=== PATIENT | female | born 1955 | race Caucasian/White ===

== ENCOUNTER 2020-01-24 14:58 | Inpatient (IN) | payer OTHER ==
[~2020-01-24] VITALS: Ht 165.1 cm; Wt 91.2 kg
[2020-01-24 14:59] VITALS: BP 148/89
[2020-01-24] MEDS ORDERED: CBD OIL (15:03)
[2020-01-24 15:26] LABS: ABSOLUTE EOSINOPHILS 0.1 thou/uL (0.0-0.7); ABSOLUTE LYMPHOCYTES 1.6 thou/uL (0.8-5.3); ABSOLUTE MONOCYTES 0.7 thou/uL (0.0-1.2); ABSOLUTE NEUTROPHILS 6.2 thou/uL (1.6-8.1); BASOPHILS 0.5 %; EOSINOPHILS 1.6 %; HEMATOCRIT 39.2 % (37.0-47.0); HEMOGLOBIN 12.7 gm/dL (12.0-15.0); LYMPHOCYTES 18.3 %; MCH 30.1 pg (26.0-34.0); MCHC 32.5 g/dL (28.0-37.0); MCV 92.8 fL (80.0-100.0); MONOCYTES 8.2 %; MPV 8.7 fl. (7.2-11.1); NUCLEATED RBCS 0 /100WBC; PLATELET COUNT* 435 thou/uL (150-400); POLYS 71.4 %; RBC 4.22 mil/uL (4.20-5.00); RDW-CV 15.5 % (10.5-14.5); WBC 8.8 thou/uL (4.0-11.0)
[2020-01-24 15:36] LABS: CALCIUM 9.2 mg/dL (8.5-10.1); CREATININE 1.4 mg/dL (0.6-1.3); POTASSIUM 3.7 mmol/L (3.5-5.1)
[2020-01-24 15:52] LABS: ALBUMIN 3.4 g/dL (3.4-5.0); MAGNESIUM 1.7 mg/dL (1.8-2.4); TOTAL BILIRUBIN 0.9 mg/dL (<0.1-1.0); TOTAL PROTEIN 7.1 g/dL (6.4-8.2)
[2020-01-24 16:13] LABS: APTT 24.5 Seconds (25.0-31.3); INR 1.1; PROTIME 11.8 Seconds (9.20-11.50)
--- NOTE | 2020-01-24 17:17 | EKG ---
[place] [address] ELECTROCARDIOGRAM REPORT Name: QUINN MEEHAN Room: [address] [address] ADM IN ..#: [id number] Admission: 01/24/20 Attend Phys: Beverly Betts, Discharge: Date of : 57 Date of Service: 01/24/20 1504 Report #: [id number] THIS REPORT FOR: //name// [facility] ED Test Date: 2020-01-24 Test Time: 15:04:05 Pat Name: QUINN MEEHAN Department: Room: [facility] Gender: F Cardiac Sonographer: HERLINDA : 1955 Requested By: Kaleb Best Order Number: [id number] MD: Pardeep Chance Measurements Intervals [place] Rate: 152 P: SD: QRS: 98 QRSD: 131 T: -30 QT: 319 QTc: 508 Interpretive Statements Right and left arm electrode reversal, interpretation assumes no reversal Atrial fibrillation Ventricular premature complex Nonspecific intraventricular conduction delay Borderline repol abnormality, diffuse leads No previous ECG available for comparison Electronically Signed On 01-24-2020 17:17:20 FILTER PULP WASHER by Pardeep Chance [email or web address] <ELECTRONICALLY SIGNED> By: Pardeep Chance MD, FACC 01/24/20 1717 1504 1504 Pardeep Chance MD, FACC /EPI
[2020-01-24 18:29] VITALS: BP 106/71
[2020-01-24 20:00] VITALS: BP 126/74
[2020-01-24 23:00] VITALS: BP 98/62
[2020-01-25 04:00] VITALS: BP 94/58
[2020-01-25 04:28] LABS: HEMATOCRIT 35.7 % (37.0-47.0); HEMOGLOBIN 11.6 gm/dL (12.0-15.0); MCH 30.5 pg (26.0-34.0); MCHC 32.5 g/dL (28.0-37.0); MCV 93.9 fL (80.0-100.0); MPV 9.1 fl. (7.2-11.1); RBC 3.8 mil/uL (4.20-5.00); RDW-CV 15.7 % (10.5-14.5); WBC 8.7 thou/uL (4.0-11.0)
--- NOTE | 2020-01-25 04:44 | NUR ---
PT ARRIVED TO [facility] ROOM 205 AT 1845. ASSUMED CARE OF PT AT 1920. PT ALERT ORIENTED. KAROL PAIN. AFIB RATE LESS THAN 100 BPM. CARDIZEM QTT INITALLY AT 10MG/HR. TITRATED DOWN TO 5 MG/HR AT 2300 WHERE IT REMAINS. UP TO BR WITH STAND BY ASSIST. NPO SINCE AR FOR POSSIBLE CARDIOVERSION. WCTM
[2020-01-25 05:01] LABS: ANION GAP 12 mmol/L (7-16); BUN 30 mg/dL (7-18); CALCIUM 8.5 mg/dL (8.5-10.1); CHLORIDE 106 mmol/L (98-107); CO2 25 mmol/L (21-32); CREATININE 1.4 mg/dL (0.6-1.3); GLUCOSE 128 mg/dL (70-99); MAGNESIUM 1.7 mg/dL (1.8-2.4); POTASSIUM 3.5 mmol/L (3.5-5.1); SODIUM 143 mmol/L (136-145); TROPONIN-I LEVEL <0.06 ng/mL (<0.06)
--- NOTE | 2020-01-25 07:26 | NUR ---
CARDIZEM GTT STOPPED SB HR 40. PT ASYMPTOMATIC.
[2020-01-25 08:54] VITALS: BP 98/47
--- NOTE | 2020-01-25 09:23 | CON ---
[address] [address] CONSULTATION Name: QUINN MEEHAN Room: [address] ADM IN M.R.#: [id number] Admission: 01/24/20 Attend Phys: Beverly Betts MD Discharge: Date of : 57 Report #: [id number] THIS REPORT FOR: //name// cc: Beatriz Aguilar Anna S. DO ~ DATE OF SERVICE: 01/24/2020 CARDIOLOGY CONSULTATION HISTORY OF PRESENT ILLNESS: The patient is a 64-year-old single white female who I was asked to see in the Emergency Room today after she is noted to be in atrial fibrillation. The patient has no history of heart disease. She does state she had a treadmill test years ago that showed no significant heart disease. She stays very active and denies any recurrent episodes of chest discomfort, shortness of breath, palpitations, syncope or heart murmur. She notes that a few weeks ago she drove to [place], was there for a while and then drove back. While she was there, she developed some epigastric discomfort. It is not related to food or exertion. She took some antacids. She has had no bleeding. Recently, she continued to complain of epigastric discomfort. She felt somewhat lightheaded. She did feel her heart fluttering. She went to urgent care today and was found to be in atrial fibrillation. She sent by ambulance to the Emergency Room and started on intravenous diltiazem. PAST MEDICAL HISTORY: She has had partial colectomy for diverticular disease and tonsillectomy. No history of hypertension, diabetes or hyperlipidemia. She has been told she has glucose intolerance in the past. MEDICATIONS: The only medication she takes is CBD oil for pain. ALLERGIES: SHE HAS AN ALLERGY TO SULFA DRUGS. FAMILY HISTORY: Father had bypass surgery in his 60s. SOCIAL HISTORY: She is single, lives here in [place]. 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 No smoking. Rarely drinks alcohol. No caffeine. She quit tobacco when she was 50. REVIEW OF SYSTEMS: She has had no history of stroke, asthma, liver disease, kidney disease, cancer, chronic skin condition or psychiatric illness. PHYSICAL EXAMINATION: GENERAL: Revealed a middle-aged female, appeared in no distress. VITAL SIGNS: She had a blood pressure of 140/80, pulse is 140, [place] [address] CONSULTATION Name: QUINN MEEHAN Room: [address]#: [id number] Admission: 01/24/20 Attend Phys: Beverly Betts MD Discharge: Date of : 57 Report #: [id number] HEENT: She was anicteric. Conjunctivae pink. Mucous membranes moist. NECK: Veins nondistended. No carotid bruits. CHEST: Clear to auscultation. CARDIOVASCULAR: Irregular, tachycardia. No significant murmurs. ABDOMEN: Soft. EXTREMITIES: Had no edema, no Homans sign. Dorsalis pedis pulse cannot be palpated. SKIN: Cool and dry. NEUROLOGIC: Nonfocal. DIAGNOSTIC DATA: ECG shows atrial fibrillation with increased ventricular response rate, nonspecific intraventricular conduction defect. LABORATORY WORK: In the Emergency Room today is pending, although the CBC shows a white blood cell count 8.8 and hemoglobin 12.7. COVID stat test was negative. Chest x-ray is pending. IMPRESSION AND RECOMMENDATIONS: 1. Atrial fibrillation. Onset unclear. Recommend anticoagulation with Eliquis. If she fails to convert, I would consider cardioversion and ROSANNE. I discussed indications, alternatives, and risks of the procedure with the patient agrees to proceed. 2. Epigastric discomfort. Suspect gastrointestinal. <ELECTRONICALLY SIGNED> By: Isai Chávez MD, FACC 01/25/20 0923 1540 1930Isai Chávez MD, FACC /nt
--- NOTE | 2020-01-25 09:43 | EKG ---
[place] [address] ELECTROCARDIOGRAM REPORT Name: QUINN MEEHAN Room: [address] ADM IN .R.#: [id number] Admission: 01/24/20 Attend Phys: Beverly Betts, Discharge: Date of : 57 Date of Service: 01/25/20 0854 Report #: [id number] THIS REPORT FOR: //name// [facility] Test Date: 2020-01-25 Test Time: 08:54:27 Pat Name: QUINN MEEHAN Department: Room: [facility] Gender: F Tuna Purse Seiner: SONJA : 1955 Requested By: Isai Chávez Order Number: [id number] Reading MD: Isai Chávez Measurements Intervals [place] Rate: 48 P: 45 TN: 168 QRS: 105 QRSD: 149 T: 116 QT: 598 QTc: 535 Interpretive Statements Sinus bradycardia Atrial premature complex poor r wave progression Nonspecific intraventricular conduction delay Inferior infarct, old Compared to ECG 01/24/2020 15:04:05 Atrial fibrillation no longer present Ventricular premature complex(es) no longer present Electronically Signed On 01-25-2020 9:42:48 TOLL SERVICE OBSERVER by Isai Chávez [email or web address] <ELECTRONICALLY SIGNED> By: Isai Chávez MD, FACC 01/25/20 0942 Isai Chávez MD, FACC /EPI
--- NOTE | 2020-01-25 11:09 | NUR ---
ECHO AT BEDSIDE
[2020-01-25 12:00] VITALS: BP 95/55
--- NOTE | 2020-01-25 13:00 | 2DMMODE ---
[address] [address] 2 D/M-MODE ECHOCARDIOGRAM Name: QUINN MEEHAN Room: [address] IN [facility]#: [id number] Admission: 01/24/20 Attend Phys: Beverly Betts, Discharge: Date of : 57 Date of Service: 01/25/20 1300 Report #: [id number] THIS REPORT FOR: cc: Beatriz Aguilar,Pardeep Singh MD [facility] ~ APPROVED REPORT Study performed: 01/25/2020 10:56:33 EXAM: Comprehensive 2D, Doppler, and color-flow Echocardiogram Patient Location: In-Patient Room #: [facility] Status: routine BSA: 1.98 HR: 50 bpm BP: 98/47 mmHg Rhythm: NSR Other Information Study Quality: Good Indications Atrial Fibrillation 2D Dimensions IVSd: 10.91 (7-11mm) LVOT Diam: 18.50 (18-24mm) LVDd: 58.35 mm PWd: 9.35 (7-11mm) Ascending Ao: 28.54 (22-36mm) LVDs: 47.02 (25-40mm) Aortic Root: 25.94 mm Volumes Left Atrial Volume (Systole) LA ESV Index: 52.20 mL/m2 Aortic Valve AoV Peak Wang.: 1.39 m/s AO Peak Gr.: 7.77 mmHg LVOT Max P.14 mmHg AO Mean Gr.: 3.83 mmHg LVOT Mean P.20 mmHg LVOT Max V: 0.89 m/s AO V2 VTI: 23.50 cm LVOT Mean V: 0.49 m/s SOL (VTI): 1.72 cm2 LVOT V1 VTI: 15.06 [place] [address] 2 D/M-MODE ECHOCARDIOGRAM Name: QUINN MEEHAN Room: [address] IN ..#: [id number] Admission: 01/24/20 Attend Phys: Beverly Betts, Discharge: Date of : 57 Date of Service: 01/25/20 1300 Report #: [id number] TDI Medial E' Wang.: 0.05 m/s Lateral E' Wang.: 0.09 m/s Pulmonary Valve PV Peak Wang.: 0.65 m/s PV Peak Gr.: 1.68 mmHg Tricuspid Valve RAP Estimate: 5.00 mmHg TR Peak Gr.: 31.00 mmHg RVSP: 36.00 mmHg PA Pressure: 36.00 mmHg Left Ventricle Left ventricle is mildly dilated. There is severe left ventricular systolic dysfunction with severely hypokinetic anterior anteroseptal and inferior torres. There is normal left ventricular wall thickness. Left ventricular systolic function is severely decreased. LVEF is 30-35%. Grade IV - fixed restrictive diastolic dysfunction. Right Ventricle The right ventricle is normal size. The right ventricular systolic function is normal. Atria Left atrium is moderately dilated. Right atrium is moderately dilated. Aortic Valve Mild aortic valve sclerosis. Trace aortic regurgitation. Mild aortic stenosis. Mitral Valve The mitral valve is normal in structure. Moderate to severe mitral regurgitation No evidence of mitral valve stenosis. Tricuspid Valve The tricuspid valve is normal in structure. Mild tricuspid regurgitation. Mild pulmonary hypertension. Pulmonic Valve The pulmonary valve is normal in structure. Mild pulmonic regurgitation. Great Vessels The aortic root is normal in size. IVC is dilated and collapses <50% [place] [address] 2 D/M-MODE ECHOCARDIOGRAM Name: QUINN MEEHAN Room: [address] IN ..#: [id number] Admission: 01/24/20 Attend Phys: Beverly Betts, Discharge: Date of : 57 Date of Service: 01/25/20 [facility] Report #: [id number] Pericardium A small pericardial effusion is noted mostly posteriorly. Left pleural effusion. <Conclusion> Left ventricle is mildly dilated. There is normal left ventricular wall thickness. Left ventricular systolic function is severely decreased. LVEF is 30-35%. Grade IV - fixed restrictive diastolic dysfunction. Left atrium is moderately dilated. Right atrium is moderately dilated. Mild aortic valve sclerosis. Trace aortic regurgitation. Mild aortic stenosis. Moderate to severe mitral regurgitation Mild tricuspid regurgitation. Mild pulmonary hypertension. IVC is dilated and collapses <50% with inspiration. A small pericardial effusion is noted mostly posteriorly. Left pleural effusion. <ELECTRONICALLY SIGNED> By: Pardeep Chance MD, FACC 01/25/20 1300 1300 1300 Pardeep Chance MD, FACC /INF
--- NOTE | 2020-01-25 13:23 | NUR ---
Pt is A&O.Resides at home alone. Independent. No DME. No hx of HH or SNF. Cardiology following, plan dc home tomorrow. CM was notified that Pt is out of network and needs to transfer to either a [facility] hospital or [facility], Pt's preference is [facility]. CM faxed referral to [facility] transfer team, [facility] is able to accept Pt clinically, but will not likely have a available bed until tomorrow, all other [facility] hospitals are at capacity. [facility] hospital is at capacity to transfers. CM updated Dr and Pt. No needs anticipated at dc. Following.
[2020-01-25 16:42] VITALS: BP 101/68
[2020-01-25 20:13] VITALS: BP 113/67
[2020-01-26] VITALS: BP 111/71
[2020-01-26 04:00] VITALS: BP 121/74
[2020-01-26 04:10] LABS: HEMATOCRIT 35.6 % (37.0-47.0); HEMOGLOBIN 11.5 gm/dL (12.0-15.0); MCH 30.1 pg (26.0-34.0); MCHC 32.2 g/dL (28.0-37.0); MCV 93.5 fL (80.0-100.0); MPV 9.1 fl. (7.2-11.1); RBC 3.81 mil/uL (4.20-5.00); RDW-CV 15.7 % (10.5-14.5); WBC 9.3 thou/uL (4.0-11.0)
[2020-01-26 04:44] LABS: ALKALINE PHOSPHATASE 58 U/L (46-116); ANION GAP 10 mmol/L (7-16); BUN 41 mg/dL (7-18); CALCIUM 8.4 mg/dL (8.5-10.1); CHLORIDE 105 mmol/L (98-107); CHOLESTEROL 141 mg/dL (<200); CO2 26 mmol/L (21-32); CREATININE 2.1 mg/dL (0.6-1.3); GLUCOSE 112 mg/dL (70-99); HDL CHOLESTEROL 23 mg/dL (>40); LDL CHOLESTEROL 99 mg/dL (<100); POTASSIUM 4.1 mmol/L (3.5-5.1); SGOT 16 U/L (15-37); SGPT 39 U/L (30-65); SODIUM 141 mmol/L (136-145); TC:HDL 6.1 Ratio (Not establshd); TOTAL BILIRUBIN 0.6 mg/dL (<0.1-1.0); TOTAL PROTEIN 6.2 g/dL (6.4-8.2); TRIGLYCERIDE 99 mg/dL (<150); VLDL 20 mg/dL (<40)
[2020-01-26 04:47] LABS: SERUM ASSESSMENT CLEAR
--- NOTE | 2020-01-26 05:21 | NUR ---
PT ALERT ORIENTED. UP AD ANNETTE IN ROOM. TELEMETRY SHOWS SR. TYLENOL GIVEN HS FOR BACK PAIN. WCTM
[2020-01-26 08:00] VITALS: BP 117/79
--- NOTE | 2020-01-26 10:50 | EKG ---
[place] [address] ELECTROCARDIOGRAM REPORT Name: MEEHAN,QUINN Room: [address] ADM IN M.R.#: [id number] Admission: 01/24/20 Attend Phys: Beverly Betts, Discharge: Date of : 57 Date of Service: 01/26/20 0839 Report #: [id number] THIS REPORT FOR: //name// [facility] Test Date: 2020-01-26 Test Time: 08:39:06 Pat Name: QUINN MEEHAN Department: Room: [address] Gender: F Bulb Sorter: SONJA : 1955 Requested By: Isai Chávez Order Number: [id number] MD: Isai Chávez Measurements Intervals [place] Rate: 60 P: 45 [place]: 173 QRS: 86 QRSD: 136 T: -30 QT: 494 QTc: 494 Interpretive Statements Sinus rhythm poor r wave progression Probable left atrial enlargement Borderline T abnormalities, inferior leads Borderline prolonged QT interval Compared to ECG 01/25/2020 08:54:27 Sinus bradycardia no longer present Atrial premature complex(es) no longer present Electronically Signed On 01-26-2020 10:50:26 SOFTWARE APPLICATIONS DEVELOPER by Isai Chávez [email or web address] <ELECTRONICALLY SIGNED> By: Isai Chávez MD, FACC 01/26/20 1050 8 Isai Chávez MD, FACC /EPI
[2020-01-26 12:00] VITALS: BP 108/72
--- NOTE | 2020-01-26 14:33 | NUR ---
Pt transferring to [facility] today, to room 215, under the care of Dr Santa. Nurse report number is [id number]. Updated Pt and nurse. Chart copied. Pt to update her family. Ambulance to transport.
--- NOTE | 2020-01-26 17:43 | NUR ---
PT. AOX4, VSS, SR ON MONITOR, CALL LIGHT AND PERSONAL BELONGINGS PLACED WITHIN REACH. REPORT GIVEN TO MIRNA KONG OF [facility] FOR TRANSFER DUE TO EF 30-35% AND ELEVATED CREAT. PT. LEFT BY AMBULANCE, IN NO APPARENT PAIN OR DISCOMFORT, AT TIME OF LEAVING UNIT
== END 2020-01-26 16:30 | disposition short-term general hospital (02) | DRG 177 ==
LOC: M.ERS 14:58 → M.2W 15:46 → M.TBA-ER 15:46 → M.2W 15:46
PROVIDERS: Emergency Medicine Emergency Medical Services; ADMIT Internal Medicine; ATTEND Internal Medicine
DX: J15.6 Pneumonia due to other Gram-negative bacteria (principal); J96.01 Acute respiratory failure with hypoxia; I50.43 Acute on chronic combined systolic (congestive) and diastolic (congestive) heart failure; I42.9 Cardiomyopathy, unspecified; N17.9 Acute kidney failure, unspecified; I13.0 Hypertensive heart and chronic kidney disease with heart failure and stage 1 through stage 4 chronic kidney disease, or unspecified chronic kidney disease; N18.9 Chronic kidney disease, unspecified; Z60.2 Problems related to living alone; E11.22 Type 2 diabetes mellitus with diabetic chronic kidney disease; I48.91 Unspecified atrial fibrillation; Z20.828 Contact with and (suspected) exposure to other viral communicable diseases; E78.5 Hyperlipidemia, unspecified; E87.6 Hypokalemia; Z91.013 Allergy to seafood; Z90.49 Acquired absence of other specified parts of digestive tract; Z88.2 Allergy status to sulfonamides; Z87.891 Personal history of nicotine dependence; Z82.49 Family history of ischemic heart disease and other diseases of the circulatory system